=== PATIENT | male | born 1995 | race Caucasian/White ===

== ENCOUNTER 2021-02-07 01:31 | Emergency (ER) | payer BC, SELFPAY ==
[~2021-02-07] VITALS: Ht 188 cm; Wt 120.2 kg
[2021-02-07 01:45] VITALS: BP_SYST 138
--- NOTE | 2021-02-07 01:45 | NUR ---
Patient to ER [facility]. Side rails up.
--- NOTE | 2021-02-07 01:46 | NUR ---
Patient BIB by family from home. C/O Flu symptoms x 1 day. Patient reported, had cough, fever and bodyache since yesterday ~ 1800 PM. Patient tested COVID-19 2 days ago, and result was negative.
--- NOTE | 2021-02-07 02:01 | NUR ---
COVID-19 and Flu swabs collected and sent to lab.
--- NOTE | 2021-02-07 02:14 | NUR ---
CXR at [facility]
--- NOTE | 2021-02-07 02:38 | NUR ---
DENIS Milligan at [facility] examining patient.
[2021-02-07] MEDS ORDERED: IBUP-1969 PO (02:52)
[2021-02-07] MEDS ORDERED: IBUPROFEN 600 MG TABLET PO ONE (03:00)
[2021-02-07] MEDS ORDERED: IBUPROFEN 600 MG TABLET ONE (03:03)
[2021-02-07 03:36] VITALS: BP_SYST 138
--- NOTE | 2021-02-07 03:36 | NUR ---
Patient given written and verbal discharge instructions and verbalizes understanding. ER MD discussed with patient the results and treatment provided. Patient in stable condition. ID arm band removed. Rx of Ibuprofen given. Patient educated on pain management and to follow up with PMD. Pain Scale 0/10. Opportunity for questions provided and answered. Medication side effect fact sheet provided.
== END 2021-02-07 03:36 | disposition home or self-care (01) ==
LOC: SED 01:31
DX: U07.1 COVID-19 (principal); E11.9 Type 2 diabetes mellitus without complications
CPT/HCPCS: 36415; 71045; 86710; 99284

== ENCOUNTER 2021-04-03 20:02 | Emergency (ER) | payer OTHER, BC ==
[~2021-04-03] VITALS: Ht 188 cm; Wt 120.2 kg
[~2021-04-03 20:02] MED LIST: IBUP-1969 PO
[2021-04-03 20:08] VITALS: BP_SYST 140
--- NOTE | 2021-04-03 20:19 | NUR ---
Patient to ER bed 3 to gown for evaluation. Side rails up. Report given to MARY KATE CARDONA.
[2021-04-03] MEDS ORDERED: KETOROLAC TROMETHAMINE 60 MG/2 ML VIAL IM ONE (21:30)
[2021-04-03] MEDS ORDERED: MORPHINE 4 MG INJ. 4 MG/ML VIAL IM ONE (21:30)
--- NOTE | 2021-04-03 22:10 | NUR ---
PATIENT A/OX4, LYING IN BED, NO C/O PAIN AND NO S/S OF DISTRESS, PATIENT CHEST RISE AND FALL SYMMETRICAL, VSS.
--- NOTE | 2021-04-04 00:25 | NUR ---
PATIENT A/OX4, LYING IN BED, NO C/O PAIN AND NO S/S OF DISTRESS, PATIENT CHEST RISE AND FALL SYMMETRICAL, VSS.
[2021-04-04] MEDS ORDERED: METH-634 PO ×2 (00:36→01:43)
[2021-04-04] MEDS ORDERED: HYDR-3921 PO ×2 (00:36→01:43)
[2021-04-04] MEDS ORDERED: IBUP-1969 PO ×2 (00:36→01:43)
[2021-04-04 01:23] LABS: HEMOGLOBIN 15.2 g/dL (14.0-18.0); MEAN CORPUSCULAR HEMOGLOBIN 28 pg (27-31); MEAN CORPUSCULAR HGB CONC 34 % (32-36); MEAN CORPUSCULAR VOLUME 82 fL (79.0-98.0); PLATELET COUNT (AUTO) 251 K/uL (130-430); RED BLOOD CELL COUNT(AUTO) 5.47 MIL/uL (4.2-6.2); RED CELL DISTRIBUTION WIDTH 13.9 % (9.0-15.0); WHITE BLOOD COUNT (AUTO) 7.8 K/uL (4.8-10.8)
--- NOTE | 2021-04-04 01:49 | NUR ---
PATIENT A/OX4, LYING IN BED, NO C/O PAIN AND NO S/S OF DISTRESS, PATIENT CHEST RISE AND FALL SYMMETRICAL, VSS.
--- NOTE | 2021-04-04 02:23 | NUR ---
RIGHT SHOULDER SLING APPLIED, PATIENT DOES NOT C/O PAIN. LEFT LOWER EXTREMITY IMMOBOLIZER APPLIED, PATIENT DOES NOT C/O PAIN OR LOSS OF SENSATION. PATIENT DEMONSTRATED ABILITY TO AMBULATE WITH CRUTCHES WITHOUT DIFFICULTY. EDUCATION COMPLETE ON USE OF MEDICAL DEVICES AND AFTERCARE, NO FURTHER QUESTIONS FROM PATIENT. Addendum: 04/04/21 at 0225 by [email or web address] RIGHT SHOULDER SLING APPLIED, PATIENT DOES NOT C/O PAIN. LEFT LOWER EXTREMITY IMMOBOLIZER APPLIED, PATIENT DOES NOT C/O PAIN OR LOSS OF SENSATION. PATIENT DEMONSTRATED ABILITY TO AMBULATE WITH CRUTCHES 25 FEET, WITHOUT DIFFICULTY. EDUCATION COMPLETE ON USE OF MEDICAL DEVICES AND AFTERCARE, NO FURTHER QUESTIONS FROM PATIENT. Addendum: 04/04/21 at 0226 by [email or web address] RIGHT SHOULDER SLING APPLIED, PATIENT DOES NOT C/O PAIN. LEFT LOWER EXTREMITY IMMOBOLIZER APPLIED, PATIENT DOES NOT C/O PAIN OR LOSS OF SENSATION. PATIENT DEMONSTRATED ABILITY TO SAFELY AMBULATE WITH CRUTCHES 25 FEET, WITHOUT DIFFICULTY. EDUCATION COMPLETE ON USE OF MEDICAL DEVICES AND AFTERCARE, WELL ENSURING FLOOR IS CLEAR OF [place] AND TO NOT HAVE ANY LOOSE CARPET AT HOME, NO FURTHER QUESTIONS FROM PATIENT.
--- NOTE | 2021-04-04 03:00 | NUR ---
PATIENT VERBALIZED UNDERSTANDING OF EDUCATION, NO FURTHER QUESTIONS. PATIENT LEFT WITH ALL BELONGINGS, PRESCRIPTION, WORKNOTE, CRUTCHES, SHOULDER SLING, LOWER LEFT EXTREMITY IMMOBOLIZER PROPERLY MEASURED, AND AFTERCARE INSTRUCTIONS. PATIENT AMBULATES WITH STRONG GAIT. Addendum: 04/04/21 at 0307 by [email or web address] PATIENT VERBALIZED UNDERSTANDING OF EDUCATION, NO FURTHER QUESTIONS. PATIENT LEFT WITH ALL BELONGINGS, PRESCRIPTION, WORKNOTE, CRUTCHES, SHOULDER SLING, LOWER LEFT EXTREMITY IMMOBOLIZER PROPERLY MEASURED, AND AFTERCARE INSTRUCTIONS. PATIENT LEFT WITH HIS AND PATIENT AMBULATED SAFELY TO CAR WITH STRONG GAIT.
[2021-04-04 03:08] VITALS: BP_SYST 122
[2021-04-04 06:19] LABS: ANION GAP 8 (5-15); CHLORIDE 101 mmol/L (98-107); CREATININE 0.83 mg/dL (0.55-1.30); GLUCOSE 101 mg/dL (70-99); POTASSIUM 3.6 mmol/L (3.5-5.1); SODIUM SERUM 136 mmol/L (136-145); UREA NITROGEN, BLOOD 23 mg/dL (8-21)
[2021-04-04 07:10] LABS: ALCOHOL, BLOOD < 3 mg/dL (<10); GFR AFRICAN AMERICAN 143 mL/min (>90)
== END 2021-04-04 03:08 | disposition home or self-care (01) ==
LOC: SED 20:02
DX: S06.9X1A Unspecified intracranial injury with loss of consciousness of 30 minutes or less, initial encounter (principal); S16.1XXA Strain of muscle, fascia and tendon at neck level, initial encounter; S40.011A Contusion of right shoulder, initial encounter; S90.32XA Contusion of left foot, initial encounter; S29.9XXA Unspecified injury of thorax, initial encounter; S89.92XA Unspecified injury of left lower leg, initial encounter; V49.49XA Driver injured in collision with other motor vehicles in traffic accident, initial encounter; Y93.89 Activity, other specified; Y92.89 Other specified places as the place of occurrence of the external cause; Y99.8 Other external cause status
CPT/HCPCS: 36415; 70450; 71045; 71100; 71260; 72125; 73030; 73564; 73590; 73630; 74177; 76376 ×2; 80048; 83051; 85014; 85048; 85049; 86886; 86900; 86901; 96372; 99285; G0482; J1885; Q9967